=== PATIENT | male | born 1980 | race African-American/Black ===

== ENCOUNTER 2018-07-15 20:36 | Emergency (ER) | payer OTHER ==
[2018-07-15] MEDS ORDERED: DEXAMETHASONE 4 MG TABLET PO ONE (22:43)
[2018-07-15] MEDS ORDERED: KETOROLAC TROMETHAMINE 60 MG/2 ML SDV IM ONE (22:44)
[2018-07-15] MEDS ORDERED: MORPHINE SULFATE IR 15 MG TABLET PO ONE (22:44)
[2018-07-15] MEDS ORDERED: LIDOCAINE 5% (700 MG) TRANSDERMAL ADH..PATCH TP ONE (22:44)
--- NOTE | 2018-07-15 22:51 | ER Document Report ---
ED General - General Chief Complaint: Back Pain Stated Complaint: BACK PAIN Time Seen by Provider: 07/15/18 22:19 TRAVEL OUTSIDE OF THE [place] IN LAST 30 DAYS: No - HPI Patient complains to provider of: Back pain Notes: Patient coming in for evaluation of back pain. Patient states history of severe arthritis with degenerative back disease having [facility] and multiple x-rays performed of his head MRI. Patient states pain starting last 48 hours states bilateral back pain no midline pain with radiation to his butt cheeks with numbness and tingling however none of them going down his leg. Patient denies any loss of bowel or bladder denies any saddle anesthesias resting comfortably upon my evaluation patient does have pain with moving around the bed. Patient denies any fevers chills nausea vomiting diarrhea IV drug abuse. Past Medical History - Social History Smoking Status: Unknown if Ever Smoked Chew tobacco use (# tins/day): No Frequency of alcohol use: None Drug Abuse: None Family History: Reviewed & Not Pertinent Patient has suicidal ideation: No Patient has homicidal ideation: No Renal/ Medical History: Denies: Hx Peritoneal Dialysis - Immunizations Hx Diphtheria, Pertussis, Tetanus Vaccination: Yes Review of Systems - Review of Systems Constitutional: No symptoms reported EENT: No symptoms reported Cardiovascular: No symptoms reported Respiratory: No symptoms reported Gastrointestinal: No symptoms reported Genitourinary: No symptoms reported Male Genitourinary: No symptoms reported Musculoskeletal: Back pain Skin: No symptoms reported Hematologic/Lymphatic: No symptoms reported Neurological/Psychological: No symptoms reported -: Yes All other systems reviewed and negative Physical Exam - Vital signs Vitals: Temp Pulse BP Pulse Ox 98.4 F 70 118/59 L 98 07/15/18 20:54 07/15/18 20:54 07/15/18 20:54 07/15/18 20:54 Interpretation: Normal - General General appearance: Appears well, Alert - HEENT Head: Normocephalic, Atraumatic Eyes: Normal Pupils: PERRL - Respiratory Respiratory status: No respiratory distress Chest status: Nontender Breath sounds: Normal Chest palpation: Normal - Cardiovascular Rhythm: Regular Heart sounds: Normal auscultation Murmur: No - Abdominal Inspection: Normal Distension: No distension Bowel sounds: Normal Tenderness: Nontender Organomegaly: No organomegaly - Back Back: Normal, Tender - Bilateral paraspinal tenderness mild to moderate with pain to palpation bilateral please meredith around the piriformis muscles - Extremities General upper extremity: Normal inspection, Nontender, Normal color, Normal ROM , Normal temperature General lower extremity: Normal inspection, Nontender, Normal color, Normal ROM , Normal temperature, Normal weight bearing. No: Madelaine's sign - Neurological Neuro grossly intact: Yes Cognition: Normal Orientation: AAOx4 Arti Coma Scale Eye Opening: Spontaneous Arti Coma Scale Verbal: Oriented Arti Coma Scale Motor: Obeys Commands Arti Coma Scale Total: 15 Speech: Normal Motor strength normal: LUE, RUE, LLE, RLE Sensory: Normal - Psychological Associated symptoms: Normal affect, Normal mood - Skin Skin Temperature: Warm Skin Moisture: Dry Skin Color: Normal Course - Re-evaluation Re-evalutation: 07/15/18 22:52 The patient presents with low back pain without signs of spinal cord compression , cauda equina syndrome, infection, aneurysm, or other serious etiology. The patient is neurologically intact. Given the extremely low risk of these diagnoses further testing and evaluation for these possibilities does not appear to be indicated at this time. The patient has been instructed to return if the symptoms worsen or change in any way. - Vital Signs Vital signs: Temp Pulse Resp BP Pulse Ox 98.4 F 70 118/59 L 98 07/15/18 20:54 07/15/18 20:54 07/15/18 20:54 07/15/18 20:54 Discharge - Discharge Clinical Impression: Back pain Qualifiers: Back pain location: low back pain Chronicity: acute Back pain laterality: bilateral Sciatica presence: without sciatica Qualified Code(s): M54.5 - Low back pain Condition: Good Instructions: Ice Packs ([facility]), Low Back Pain ([facility]), Oral Narcotic Medication ( [facility]), Warm Packs ([facility]), Stretching Exercises for the Back ([facility]) Additional Instructions: I would highly recommend that you follow-up with your primary care physician for your acute on chronic back pain. I would highly recommend you to get further imaging of her back such as an MRI to further define him the pathology is causing your pain. Please take medication as prescribed I would highly recommend taking the Tylenol and Motrin combination for pain control for severe pain take the morphine prescribed return to ER symptoms worsen. Prescriptions: Ibuprofen [Motrin 600 mg Tablet] 600 mg PO Q8HP PRN #21 tablet PRN Reason: Morphine Sulfate [Morphine Ir 15 Mg Tablet] 15 mg PO TID #15 tablet Forms: Return to Work Referrals: LOCALMD,NO [Primary Care Provider] - Follow up as needed
[2018-07-15 23:35] VITALS: BP 113/71
== END 2018-07-15 23:36 | disposition home or self-care (01) ==
LOC: ER 20:36
DX: M54.5 Low back pain (principal); R20.0 Anesthesia of skin; R20.2 Paresthesia of skin
CPT/HCPCS: 99283; 96372; J1885

== ENCOUNTER 2019-04-08 09:06 | Emergency (ER) | payer OTHER ==
[2019-04-08 09:27] VITALS: BP 112/52
[2019-04-08] MEDS ORDERED: LIDOCAINE 5% (700 MG) TRANSDERMAL ADH..PATCH TP ONE (09:50)
[2019-04-08] MEDS ORDERED: IBUPROFEN 800 MG TABLET PO ONE (09:50)
--- NOTE | 2019-04-08 09:52 | ER Document Report ---
HPI - HPI Patient complains to provider of: Back pain Time Seen by Provider: 04/08/19 09:43 Onset: Other - 2 weeks Onset/Duration: Persistent Quality of pain: Achy Pain Level: 4 Context: Patient reports a history of chronic back pain that is flared up over the past several weeks. Patient denies any injury fever or urinary symptoms. Patient states this is pain typical when he has had flareups in the past. Associated Symptoms: denies: Fever, Headache Exacerbated by: Movement, Walking Relieved by: Denies Similar symptoms previously: Yes Recently seen / treated by doctor: No - ROS ROS below otherwise negative: Yes Systems Reviewed and Negative: Yes All other systems reviewed and negative - CONSTITUTIONAL Constitutional: DENIES: Fever, Chills - NEURO Neurology: DENIES: Headache, Weakness - RESPIRATORY Respiratory: DENIES: Coughing - URINARY Urinary: DENIES: Dysuria, Urgency, Frequency - MUSCULOSKELETAL Musculoskeletal: REPORTS: Back Pain. DENIES: Extremity pain - DERM Skin Color: Normal Skin Problems: None Past Medical History - General Information source: Patient - Social History Smoking Status: Never Smoker Frequency of alcohol use: None Drug Abuse: None Occupation: None Lives with: Family Family History: Reviewed & Not Pertinent Renal/ Medical History: Denies: Hx Peritoneal Dialysis Musculoskeletal Medical History: Reports Hx Arthritis, Reports Other - Chronic back pain Surgical Hx: Negative - Immunizations Hx Diphtheria, Pertussis, Tetanus Vaccination: Yes Vertical Provider Document - CONSTITUTIONAL Agree With Documented VS: Yes Exam Limitations: No Limitations General Appearance: WD/WN, No Apparent Distress Notes: PHYSICAL EXAMINATION: GENERAL: Well-appearing, well-nourished and in no acute distress. HEAD: Atraumatic, normocephalic. EYES: sclera clear, anicteric, conjunctiva are normal. ENT: nares patent, Moist mucous membranes. NECK: Normal range of motion, supple LUNGS: respirations unlabored HEART: Regular rate and rhythm without murmurs EXTREMITIES: Normal range of motion, no pitting or edema. No cyanosis. Gait normal, pt ambulates without difficulty BACK: Lumbar paraspinal tenderness, lumbar midline tenderness, no deformities or step-offs. No CVA tenderness. NEUROLOGICAL: Cranial nerves grossly intact. Normal speech, normal gait. No saddle anesthesia. PSYCH: Normal mood, normal affect. SKIN: Warm, Dry, normal turgor, no rashes or lesions noted. - INFECTION CONTROL TRAVEL OUTSIDE OF THE [place] IN LAST 30 DAYS: No Course - Re-evaluation Re-evalutation: 04/08/19 09:51 The patient presents with low back pain without signs of spinal cord compression, cauda equina syndrome, infection, aneurysm, or other serious etiology. The patient is neurologically intact. Given the extremely risk of these diagnoses further testing and evaluation for these possibilities does not appear to be indicated at this time. Patient has been instructed to return if the symptoms worsen or change in any way. - Vital Signs Vital signs: Temp Pulse Resp BP Pulse Ox 98.8 F 73 18 112/52 L 98 04/08/19 09:26 04/08/19 09:26 04/08/19 09:26 04/08/19 09:26 04/08/19 09:26 Discharge - Discharge Clinical Impression: Chronic low back pain Qualifiers: Back pain laterality: bilateral Sciatica presence: without sciatica Qualified Code(s): M54.5 - Low back pain Condition: Stable Disposition: HOME, SELF-CARE Instructions: Chronic Back Pain ([facility]), Ice Packs ([facility]), Muscle Relaxers ([facility]) Additional Instructions: Return immediately for any new or worsening symptoms Followup with your primary care provider, call tomorrow to make a followup appointment Prescriptions: Lidocaine [Lidoderm 5% (700 mg) Transdermal Patch] 1 patch TP DAILY PRN #10 adh..patch PRN Reason: Metaxalone [Skelaxin 800 mg Tablet] 800 mg PO ASDIR PRN #15 tablet PRN Reason: Naproxen [Naprosyn 250 Nmg Tablet] 1 tab PO BID #14 tablet Referrals: [facility] [Provider Group] - Follow up as needed
== END 2019-04-08 10:29 | disposition home or self-care (01) ==
LOC: ER 09:06
DX: M54.5 Low back pain (principal); M54.9 Dorsalgia, unspecified; G89.29 Other chronic pain
CPT/HCPCS: 99283